=== PATIENT | female | born 2000 | race Caucasian/White ===

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

== ENCOUNTER 2021-03-28 09:58 | Inpatient (IN) ==
[2021-03-28] MEDS ORDERED: Ropivacaine/PF 0.2% 20 ML VIAL EP ONE (11:00)
[2021-03-28] MEDS ORDERED: *HR* FentaNYL (PF) 100 MCG/2 ML VIAL EP ONE (11:00)
[2021-03-28] MEDS ORDERED: Epidural Premix (fent/bupiv) 110 ML EP SCH (11:00)
[2021-03-28] MEDS ORDERED: EPHEDrine 50 MG/ML VIAL IVP PRN (11:00)
[2021-03-28] MEDS ORDERED: Ropivacaine/PF 0.2% 20 ML VIAL ONE (11:03)
[2021-03-28] MEDS ORDERED: *HR* FentaNYL (PF) 250 MCG/5 ML VIAL ONE (11:03)
[2021-03-28] MEDS ORDERED: Metoclopramide 10 MG/2 ML VIAL IVP PRN (11:39)
[2021-03-28] MEDS ORDERED: Famotidine 20 MG/2 ML VIAL IVP PRN (11:39)
[2021-03-28] MEDS ORDERED: Lidocaine 1% 20 ML MDV INFILT PRN (11:39)
[2021-03-28] MEDS ORDERED: Naloxone 0.4 MG/ML INJ IVP PRN (11:39)
[2021-03-28] MEDS ORDERED: *HR* Nalbuphine 10 MG/ML AMPUL IV PRN (11:39)
[2021-03-28] MEDS ORDERED: Azithromycin 500 MG in 0.9 % Sodium Chloride 250 ML IVPB PRN (11:39)
[2021-03-28] MEDS ORDERED: Ondansetron 4 MG/2 ML VIAL IVP PRN (11:39)
[2021-03-28] MEDS ORDERED: Ringers Solution, Lactated 1,000 ML IVC SCH (11:45)
[2021-03-28] MEDS ORDERED: miSOPROStoL 25 MCG TABLET PO ONE (12:16)
[2021-03-28 12:43] LABS: Basophils % 0.3 %; Eosinophils # 0.1 K/mcL (0.0-0.6); Eosinophils % 0.7 %; Hematocrit 32.2 % (35.3-44.9); Immature Granulocytes % 0.5 % (0-4); Lymphocytes # 2.8 K/mcL (0.6-4.6); Lymphocytes % 27.3 %; Mean Corpuscular HGB Conc 31.1 g/dL (31.6-35.5); Mean Corpuscular Volume 83.9 fL (83.0-100.0); Mean Platelet Volume 10.6 fL (9.4-12.4); Monocytes # 0.7 K/mcL (0.0-1.3); Monocytes % 7.3 %; Neutrophils # 6.5 K/mcL (1.6-8.9); Platelet Count 330 K/mcL (140-400); Red Blood Count 3.84 M/mcL (3.82-4.97); Red Cell Distribution Width 14.8 % (11.5-14.5); Segmented Neutrophils % 63.9 %; White Blood Count 10.1 K/mcL (4.3-11.1)
[2021-03-28 12:56] LABS: Amphetamine Screen,Urine Negative ng/mL (Cutoff=1000); Barbiturate Screen,Urine Negative ng/mL (Cutoff=200); Benzodiazepines Screen,Urine Negative ng/mL (Cutoff=200); Cannabinoid Screen,Urine Negative ng/mL (Cutoff = 50); Cocaine Screen,Urine Negative ng/mL (Cutoff= 300); Opiate Screen,Urine Negative ng/mL (Cutoff=300); Phencyclidine Screen,Urine Negative ng/mL (Cutoff=25)
[2021-03-28] MEDS ORDERED: Oxytocin 20 units/ LR 1000 mL 20 UNIT/1,000 ML BAG IVC SCH (18:00)
[2021-03-29] MEDS ORDERED: Measles/Mumps/Rubella Vacc 0.5 ML VIAL SQ PRN (02:41)
[2021-03-29] MEDS ORDERED: Benzocaine/Menthol 56 GM AEROSOL SPRAY TP PRN (02:41)
[2021-03-29] MEDS ORDERED: Acetaminophen 325 MG TABLET PO PRN (02:41)
[2021-03-29] MEDS ORDERED: Lanolin 7 G OINT...G. TP PRN (02:41)
[2021-03-29] MEDS ORDERED: Oxytocin 20 units/ LR 1000 mL 20 UNIT/1,000 ML BAG IVC SCH (02:41)
[2021-03-29] MEDS ORDERED: Rho Immune Globulin 1,500 UNIT SYRINGE IM PRN (02:41)
[2021-03-29] MEDS: Ibuprofen 600 MG TABLET PO PRN ×3 (04:16→20:54)
[2021-03-29 05:10] LABS: Basophils % 0.2 %; Eosinophils % 0.1 %; Hematocrit 32.3 % (35.3-44.9); Hemoglobin 9.9 g/dL (11.5-15.4); Immature Granulocytes % 0.5 % (0-4); Lymphocytes # 2.1 K/mcL (0.6-4.6); Lymphocytes % 11.4 %; Mean Corpuscular HGB Conc 30.7 g/dL (31.6-35.5); Mean Corpuscular Hemoglobin 25.6 pg (28.0-33.3); Mean Corpuscular Volume 83.7 fL (83.0-100.0); Mean Platelet Volume 10.8 fL (9.4-12.4); Monocytes % 5.4 %; Neutrophils # 15.3 K/mcL (1.6-8.9); Platelet Count 316 K/mcL (140-400); Red Blood Count 3.86 M/mcL (3.82-4.97); Red Cell Distribution Width 14.7 % (11.5-14.5); Segmented Neutrophils % 82.4 %
[2021-03-29 05:12] LABS: White Blood Count 18.6 K/mcL (4.3-11.1)
[2021-03-29] MEDS ORDERED: Prenatal Vit/FA 1 EACH TABLET PO SCH (09:00)
[2021-03-29 19:53] VITALS: BP 120/75
== END 2021-03-30 01:00 | disposition home or self-care (01) | DRG 560 ==
LOC: 1NENULAB 09:58 → 1NENUOBS 03-29 03:32
PROVIDERS: ADMIT Obstetrics & Gynecology; ATTEND Obstetrics & Gynecology